=== PATIENT | male | born 1955 | race Caucasian/White ===

== ENCOUNTER 2016-12-29 17:21 | Observation (INO) | payer OTHER ==
[~2016-12-29] VITALS: Ht 162.6 cm; Wt 94.4 kg
[~2016-12-29 17:21] MED LIST: AMARYL2 MG PO; AMITRIPTYLINE H50 MG PO; AMITRIPTYLINE100 M1 PO; ASPIR 8181 M1 PO; ASPIR-LOW81 MG PO; ASPIR-TRIN325 M1 PO; ASPIRIN81 M1 PO; BYSTOLIC; BYSTOLIC5 MG PO; CLONAZEPAM1 MG PO; COLACE100 MG PO; CRESTOR5 MG PO; CYCLOBENZAPRINE10 MG PO; DELATESTRY200 MG/1 M IM; DHA PO; DILAUDID2 MG PO; ELAVIL50 MG PO; Elavil PO; FIORICET,ESG1 TABLET PO; FLOMAX0.4 MG PO; FLONASE16 G1 BOTH NARES; FLORASTOR250 MG PO; GABAPENTIN600 MG PO; GLIMEPIRIDE; GLUCOPHAGE1000 MG PO; GLUCOPHAGE500 MG PO; HYDROCHLOROTHIA25 MG PO; HYDROCODONE; Hydrodiuril,Oretic,E PO; JANUMET XR 50-1 EAC1 PO; KOMBIGLYZE XR PO; KOMBIGLYZE XR1 EAC1 PO; LANTUS100 UNIT/1 SC; LEXAPRO10 MG PO; LEXAPRO20 MG PO; LISINOPRIL-HCT1 EACH PO; LIVALO2 MG PO; LO-DOSE ASPIRIN81 M1 PO; LUNESTA3 MG PO; METFORMIN HCL1000 MG PO; METFORMIN HCL500 MG PO; MIRAPEX0.25 MG PO; MORPHINE SULFAT15 M1 PO; MS CONTIN,ORAMO15 M1 PO; MULTIVITAMIN1 EAC1 PO; MULTIVITAMIN1 EAC2 PO; NEURONTIN300 MG PO; NEURONTIN600 MG PO; NEXIUM40 MG PO; NICOTINE PATCH1 EAC2 TD; OMEGA 3 1,0001 EACH PO; OMEGA EPA PO; ONE DAILY MULT1 EACH PO; OXYCODONE-ACET1 EACH PO; PANTOPRAZOLE SO40 MG PO; PERCOCET 7.51 TABLET PO; THERAGRAN1 TABLET PO; TRICOR145 MG PO; URECHOLINE50 MG PO; VOLTAREN-XR100 MG PO; VOLTAREN50 MG PO; Vicodin,Lortab 5/500 PO; ZANAFLEX4 M1 PO; ZOFRAN4 MG PO
[2016-12-29 19:33] LABS: BASOPHIL COUNT 0.1 K/uL (0-0.1); EOSINOPHIL (%) 6.5 % (0-5); EOSINOPHIL COUNT 0.7 K/uL (0-0.3); HEMATOCRIT 38.4 % (38.0-50.0); IMMATURE GRANULOCYTE (%) 0.7 % (0.0-0.7); IMMATURE GRANULOCYTE COUNT 0.1 K/uL; LYMPHOCYTE COUNT 2.7 K/uL (1.0-2.8); MCHC 32.3 G/DL (30.0-36.0); MCV 89.7 FL (86-99); MEAN PLAT.VOLUME 8.6 uM^3 (9.0-12.4); MONOCYTE (%) 6.8 % (3-12); MONOCYTE COUNT 0.7 K/uL (0-0.8); NEUTROPHIL (%) 58.9 % (45-76); PLATELET COUNT 217 K/uL (156-360); RBC DIS.WIDTH-CV 12.2 % (11.8-14.6); RBC DIS.WIDTH-SD 39.7 % (39-53); RED BLOOD COUNT 4.28 M/uL (4.00-5.50); WHITE BLOOD COUNT 10.2 K/uL (4.1-10.2)
[2016-12-29 19:39] LABS: PROTHROMBIN TIME 10.7 SEC (10.2-12.9)
[2016-12-29 19:40] LABS: CHLORIDE 108 mEq/L (99-109); SODIUM 139 mEq/L (136-147)
[2016-12-29 19:42] LABS: GLUCOSE 100 mg/dL (70-99); PTT 31.6 SEC (25-37)
[2016-12-29 19:43] LABS: ANION GAP 9 MEQ/L (2-14)
[2016-12-29 19:46] LABS: GFR ESTIMATE (CALCULATED) > 59 mL/min/
[2016-12-29 19:47] LABS: UREA NITROGEN (BUN) 23 mg/dL (9-23)
[2016-12-29 20:01] LABS: ADD MIUA? NO; BILIRUBIN NEGATIVE; BLOOD NEGATIVE; COLOR YELLOW ((YELLOW)); GLUCOSE (STRIP) NEGATIVE; KETONES NEGATIVE; LEUKOCYTES NEGATIVE; NITRITE NEGATIVE; PROTEIN (STRIP) NEGATIVE; SPECIFIC GRAVITY 1.011 (1.000-1.030); UCUL ADDED? NO; UROBILINOGEN 0.2 MG/DL (0.2-1.0)
[2016-12-29 20:04] LABS: Estimated Average Glucose 203 mg/dL (70-123); HEMOGLOBIN A1c (GLYCOHEMOGLOB) 8.7 % HGB (Below 5.7)
[2016-12-29 20:15] LABS: HDL CHOLESTEROL 32 MG/DL (Desirable>=40); LDL CHOLESTEROL 52 mg/dL (Desirable<100); NON-HDL CHOLESTEROL 99 mg/dL (Desirable<160); TOTAL CHOLESTEROL 131 mg/dL (Desirable<200); TRIGLYCERIDES 235 MG/DL (Normal: <150)
[2016-12-29] MEDS ORDERED: MIRAPEX0.25 MG PO (21:39)
[2016-12-29] MEDS ORDERED: VOLTAREN 1% GE100 GM TP (21:40)
[2016-12-29] MEDS ORDERED: LISINOPRIL5 MG PO (21:40)
[2016-12-29] MEDS ORDERED: LEVEMIR FL100 UNIT/1 SC (21:40)
[2016-12-29] MEDS ORDERED: AMLODIPINE BESYL5 MG PO (21:41)
[2016-12-29] MEDS ORDERED: ATORVASTATIN CA10 MG PO (21:41)
[2016-12-29] MEDS ORDERED: HYDROCODON-ACE1 EAC9 PO (21:41)
[2016-12-29] MEDS ORDERED: DIPYRIDAMOLE75 MG PO (21:41)
[2016-12-29] MEDS ORDERED: METOPROLOL SUCC50 MG PO (21:41)
[2016-12-29] MEDS ORDERED: SENNA PLUS TAB1 EACH PO (21:42)
[2016-12-29] MEDS ORDERED: MELATONIN10 M1 PO (21:42)
[2016-12-30 00:19] VITALS: BP 127/70
[2016-12-30 01:12] LABS: TROP-I INTERPRETATION NEGATIVE; TROPONIN-I < 0.01 ng/mL (0.0-0.30)
[2016-12-30 04:35] VITALS: BP 108/62
[2016-12-30 06:00] LABS: HEMATOCRIT 37.4 % (38.0-50.0); MCH 30.4 PG (29.0-34.0); MCHC 33.7 G/DL (30.0-36.0); MCV 90.1 FL (86-99); MEAN PLAT.VOLUME 8.8 uM^3 (9.0-12.4); PLATELET COUNT 225 K/uL (156-360); RBC DIS.WIDTH-CV 12.3 % (11.8-14.6); RBC DIS.WIDTH-SD 40.3 % (39-53); RED BLOOD COUNT 4.15 M/uL (4.00-5.50); WHITE BLOOD COUNT 8.4 K/uL (4.1-10.2)
[2016-12-30 06:42] LABS: TROP-I INTERPRETATION NEGATIVE; TROPONIN-I < 0.01 ng/mL (0.0-0.30)
[2016-12-30 08:46] LABS: POINT-OF-CARE METER ID UU13113717; POINT-OF-CARE USER ID STWAMT
[2016-12-30 08:49] VITALS: BP 133/65
[2016-12-30 13:13] LABS: TROP-I INTERPRETATION NEGATIVE; TROPONIN-I < 0.01 ng/mL (0.0-0.30)
[2016-12-30 15:36] VITALS: BP 136/83
[2016-12-30 16:42] LABS: POINT-OF-CARE METER ID UU14188625
== END 2016-12-30 17:42 | disposition home or self-care (01) ==
LOC: EME 17:21 → EDOF 22:12 → 5SOUTH 22:12 → ENRESERV 22:13 → 5SOUTH 12-30 00:13
PROVIDERS: Emergency Medicine; Hospitalist
DX: G45.9 Transient cerebral ischemic attack, unspecified (principal); I65.22 Occlusion and stenosis of left carotid artery; Z79.82 Long term (current) use of aspirin; Z79.02 Long term (current) use of antithrombotics/antiplatelets; I10 Essential (primary) hypertension; E78.5 Hyperlipidemia, unspecified; I67.9 Cerebrovascular disease, unspecified; G89.29 Other chronic pain; I25.10 Atherosclerotic heart disease of native coronary artery without angina pectoris; E11.9 Type 2 diabetes mellitus without complications; Z85.828 Personal history of other malignant neoplasm of skin; Z79.84 Long term (current) use of oral hypoglycemic drugs; Z79.4 Long term (current) use of insulin; Z87.891 Personal history of nicotine dependence; Z91.030 Bee allergy status
CPT/HCPCS: 70450; 70498; 70551; 80048; 80061; 81003; 82607; 82746; 82948; 83036; 84439; 84443; 84484; 85025; 85027; 85610; 85730; 93005; 93880; 95819; 99281; 99285; G0378; J1650; J1815; J7030